=== PATIENT | female | born 1950 ===

== ENCOUNTER 2025-06-13 15:02 | Inpatient (IN) | payer MEDICARE ==
[~2025-06-13] VITALS: Ht 175.3 cm; Wt 87.8 kg
[2025-06-13 19:12] VITALS: BP 150/93
--- NOTE | 2025-06-13 19:41 | NUR ---
DIRECT ADMISSION PATIENT ARRIVED TO PCU 01 VIA STRETCHER FROM . SHE IS ALERT AND ORIENTED X4, ABLE TO TRANSFER SELF. DENIES ANY NUMBNESS OR TINGLING. ON ROOM AIR, VITAL SIGNS STABLE. ENDORSES HAVING BACK PAIN. ALCOHOL AND DRUG COUNSELOR KEYUR AT BEDSIDE FOR ASSESSMENT.
[2025-06-13] MEDS ORDERED: Albuterol 2.5 MG/3 ML VIAL INH PRN (19:45)
[2025-06-13] MEDS ORDERED: HYDROcodone 5-APAP 325 TAB PO PRN (19:45)
[2025-06-13 20:24] LABS: Hematocrit 26.4 % (33.0-51.0); Hemoglobin 8.8 g/dL (11.5-16.0); Mean Corpuscular HGB Conc 33.3 g/dL (31.5-36.5); Mean Corpuscular Volume 95 fL (80-100); NRBC ABSOLUTE 0.00 K/mm3 (0.00-0.02); NRBC Auto 0.0 /100 WBC (0.0-0.2); Platelet Count 212 K/mm3 (150-400); RDW Coefficient Variation 13.8 % (11.7-14.2); RDW Standard Deviation 47.8 fL (35.1-46.3)
[2025-06-13 20:45] LABS: Alanine Aminotransfer (ALT/SGP 15.0 U/L (12-78); Albumin, Blood 3.4 g/dL (3.4-5.0); Albumin/Globulin Ratio 0.6 (0.8-1.8); Anion Gap 11.0 mmol/L (3-11); Aspartate Aminotrans (AST/SGOT 22.0 U/L (12-37); Bilirubin, Total 0.3 mg/dL (0.1-1.0); Blood Urea Nitrogen 18.0 mg/dL (8-24); CO2, Blood 29.0 mmol/L (21-32); Calcium, Blood 9.5 mg/dL (8.5-10.1); Chloride, Blood 96.0 mmol/L (98-108); Creatinine, Blood 2.72 mg/dL (0.40-1.00); Globulin, Blood 5.8 g/dL (2.2-4.0); Glucose, Blood 100.0 mg/dL (70-99); Potassium, Blood 3.5 mmol/L (3.5-5.5); Sodium, Blood 132.0 mmol/L (136-145); Total Protein, Blood 9.2 g/dL (6.4-8.2)
[2025-06-13] MEDS ORDERED: Heparin Sodium,Porcine 5,000 UNIT/0.5 ML SDV SC SCH (21:00)
[2025-06-13] MEDS ORDERED: ALBU90OI INH (21:48)
[2025-06-13] MEDS ORDERED: ACET500 PO (21:48)
[2025-06-13] MEDS ORDERED: ELIQUIS5 M2 PO (21:49)
[2025-06-13] MEDS ORDERED: Alphagan P5 ML BOTHEYES (21:50)
[2025-06-13] MEDS ORDERED: BUTALB-ASPIRIN1 EAC1 PO (21:51)
[2025-06-13] MEDS ORDERED: Calcium Acetat667 MG PO (22:00)
[2025-06-13] MEDS ORDERED: THERA-D2000 UNIT PO (22:01)
[2025-06-13] MEDS ORDERED: HYDR1TAB94 PO (22:02)
[2025-06-13] MEDS ORDERED: DORZOPSO BOTHEYES (22:02)
[2025-06-13] MEDS ORDERED: LATA.005SO BOTHEYES (22:03)
[2025-06-13] MEDS ORDERED: HYDSUL200 PO (22:03)
[2025-06-13] MEDS ORDERED: MONT10T PO (22:04)
[2025-06-13] MEDS ORDERED: EUTHYROX88 MCG PO (22:04)
[2025-06-13] MEDS ORDERED: ONDA4 PO (22:04)
[2025-06-13] MEDS ORDERED: PREG75 PO (22:05)
[2025-06-13] MEDS ORDERED: ROSUVASTATIN CAL5 MG PO (22:06)
[2025-06-13] MEDS ORDERED: SODBIC650 PO (22:06)
[2025-06-13] MEDS ORDERED: SYMBICORT 80-10.2 GM INH (22:09)
[2025-06-13] MEDS ORDERED: VENL150ER PO (22:10)
[2025-06-13] MEDS ORDERED: ALEN70 PO (22:11)
[2025-06-13 23:19] VITALS: BP 147/84
[2025-06-14 04:25] VITALS: BP 139/94
--- NOTE | 2025-06-14 05:24 | NUR ---
SHIFT SUMMARY PATIENT ALERT AND ORIENTED X4. MEDICATED PER EMAR FOR PAIN. HAD NO COMPLAINTS OF SHORTNESS OF BREATH. ON ROOM AIR WHILE AWAKE, CPAP FOR SLEEP. VITAL SIGNS STABLE. NO ACUTE ISSUES NOTED OVERNIGHT. WILL CONTINUE TO MONITOR. CALL LIGHT WITHIN REACH.
--- NOTE | 2025-06-14 08:40 | NUR ---
Pt is sleeping at time of bedside shift report. Respirations even, unlabored. NPO for permacath placement today. NSR 74 bpm by telemetry noted, 95% spo2 on room air.
--- NOTE | 2025-06-14 10:49 | NUR ---
Pt reported this morning that she had some dizzyness last night. She felt fine this morning while lying down, but her blood pressure lying was 95/71 (80). Upon standing she felt a little bit dizzy while holding on to the walker, and her b/p was 104/69 (79). Her dizzyness resolved. Otherwise she has no complaints and feels ok.
--- NOTE | 2025-06-14 11:02 | NUR ---
Plan for permacath placement today, between 2 and 7 pm per COR[facility] Brito in [facility].
[2025-06-14 12:13] VITALS: BP 109/77
[2025-06-14] MEDS ORDERED: Heparin Sodium 1000 Units/ML 10ML MDV ONE (15:04)
[2025-06-14] MEDS ORDERED: NS 250 ML IV ONE (15:04)
[2025-06-14] MEDS ORDERED: Aspirin/Caffeine/Butalbital 1 CAP PO PRN (15:05)
[2025-06-14] MEDS ORDERED: FentaNYL Citrate 50 MCG/ML 2 ML Injection ONE (15:30)
[2025-06-14] MEDS ORDERED: Midazolam HCl 1MG / ML 2ML Vial ONE (15:30)
[2025-06-14] MEDS ORDERED: NS 500 ML IV ONE (15:31)
[2025-06-14] MEDS ORDERED: Heparin Sodium 10,000 Units/ML 1ML MDV ONE (16:00)
[2025-06-14] MEDS ORDERED: Ondansetron HCl 2 MG / ML 2ML Vial ONE (16:29)
[2025-06-14 16:38] VITALS: BP 143/71
[2025-06-14] MEDS ORDERED: Calcium Acetate 667 MG Gel Cap PO SCH (17:00)
--- NOTE | 2025-06-14 17:01 | NUR ---
Pt returned in wheelchair with CORETTA Velásquez accompanying her from [facility], after permacath placement on the right chest wall. she is awake, alert, oriented and pleasantly conversant. Has no complaints of pain or discomfort. Her daughter Nakia is also at bedside. Pt vital signs are stable. The permacath on the right chest wall is covered in Clean dry and intact CHG dressing. Cloth dot also on the right chest wall is CDI. Cloth dot on the left neck where IJ was removed is also CDI. Pt is sitting up in bed, eating some soup and drinking ice water. She has no complaints.
[2025-06-14] MEDS ORDERED: Formoterol/Mometasone MDI 5/100 mcg 13 GM INH SCH (18:20)
[2025-06-14 19:24] VITALS: BP 135/61
[2025-06-14] MEDS ORDERED: Latanoprost 0.005% Opth Soln 2.5 ML BOTHEYES SCH (21:00)
[2025-06-14] MEDS ORDERED: Brimonidine Tartrate 0.2% Opth 5 ml BOTHEYES SCH (21:00)
[2025-06-14 23:45] VITALS: BP 137/80
[2025-06-15] VITALS (19 sets, daily range): BP systolic 108–172; BP diastolic 62–88
[2025-06-15 04:09] LABS: BASOPHILS ABSOLUTE AUTO 0.07 K/mm3 (0.00-0.23); BASOPHILS PERCENT AUTO 1 % (0-2); EOSINOPHILS ABSOLUTE AUTO 0.57 K/mm3 (0.00-0.68); EOSINOPHILS PERCENT AUTO 9 % (0-6); Hematocrit 25.6 % (33.0-51.0); Hemoglobin 8.3 g/dL (11.5-16.0); IMMATURE GRAN ABSOLUTE AUTO 0.05 K/mm3 (0.00-0.10); IMMATURE GRAN PERCENT AUTO 1 % (0-1); LYMPHOCYTES ABSOLUTE AUTO 1.50 K/mm3 (0.84-5.20); LYMPHOCYTES PERCENT AUTO 23 % (21-46); MONOCYTES ABSOLUTE AUTO 0.78 K/mm3 (0.16-1.47); MONOCYTES PERCENT AUTO 12 % (4-13); Mean Corpuscular HGB Conc 32.4 g/dL (31.5-36.5); Mean Corpuscular Volume 97 fL (80-100); NEUTROPHILS ABSOLUTE AUTO 3.52 K/mm3 (1.96-9.15); NEUTROPHILS PERCENT AUTO 54 % (41-73); NRBC ABSOLUTE 0.00 K/mm3 (0.00-0.02); NRBC Auto 0.0 /100 WBC (0.0-0.2); Platelet Count 207 K/mm3 (150-400); RDW Coefficient Variation 13.9 % (11.7-14.2); RDW Standard Deviation 49.3 fL (35.1-46.3)
[2025-06-15 04:25] LABS: Albumin, Blood 3.3 g/dL (3.4-5.0); Anion Gap 13 mmol/L (3-11); Blood Urea Nitrogen 41 mg/dL (8-24); CO2, Blood 28 mmol/L (21-32); Calcium, Blood 9.5 mg/dL (8.5-10.1); Chloride, Blood 96 mmol/L (98-108); Creatinine, Blood 5.90 mg/dL (0.40-1.00); Glucose, Blood 121 mg/dL (70-99); Magnesium, Blood 2.2 mg/dL (1.6-2.4); Phosphorus, Blood 4.8 mg/dL (2.5-4.9); Potassium, Blood 3.5 mmol/L (3.5-5.5); Sodium, Blood 133 mmol/L (136-145)
--- NOTE | 2025-06-15 05:19 | NUR ---
SHIFT SUMMARY PATIENT ALERT AND ORIENTED X4. MEDICATED PER EMAR FOR PAIN. DENIES CHEST PAIN OR SHORTNESS OF BREATH. ON ROOM AIR WHILE AWAKE AND CPAP FOR SLEEP. VITAL SIGNS STABLE. NO ACUTE ISSUES NOTED OVERNIGHT. WILL CONTINUE TO MONITOR. CALL LIGHT WITHIN REACH.
--- NOTE | 2025-06-15 08:42 | NUR ---
PT DOWN TO DIALYSIS AT 0830 VIA HOSPITAL BED AND ON RA. PT PERSONAL PHONE AND WATER BOTTLE WITH PT PER REQUEST.
[2025-06-15] MEDS ORDERED: Cholecalciferol 1000 Unit Tablet (=25MCG) PO SCH (09:00)
[2025-06-15] MEDS ORDERED: PANT20 PO (10:51)
--- NOTE | 2025-06-15 13:19 | NUR ---
DISCHARGE UPDATE DISCHARGE PACKET GONE OVER WIT PT AND PT DAUGHTER AT 1250. PT DISCHARGED AT 1310 VIA WHEEL CHAIR AND ON RA. PT ABLE TO DRESS HER SELF AND TRANSFER TO AND FROM WHEELCHAIR ON HER OWN, TOLERATED WELL. PT PERSONAL BELONGINGS WITH DAUGHTER AT TIME OF DISCHARGE. DISCHARGE PACKET WITH PT AT TIME OF DISCHARGE.
[2025-06-17 05:00] LABS: HBV CORE ANTIBODIES,TOTAL Negative (Negative); HEPATITIS B SURFACE ANTIBODY <3.10 IU/L
== END 2025-06-15 13:00 | disposition home or self-care (01) | DRG 682 ==
LOC: PCU 15:02
PROVIDERS: Family Medicine; Internal Medicine Nephrology; Nurse Practitioner Acute Care; ADMIT Internal Medicine
PROC: 5A1D70Z Performance of Urinary Filtration, Intermittent, Less than 6 Hours Per Day (ICD-10-PCS; principal; 2025-06-13)
DX: I12.0 Hypertensive chronic kidney disease with stage 5 chronic kidney disease or end stage renal disease (principal); N18.6 End stage renal disease; D68.61 Antiphospholipid syndrome; N17.9 Acute kidney failure, unspecified; Z66 Do not resuscitate; E03.9 Hypothyroidism, unspecified; G47.33 Obstructive sleep apnea (adult) (pediatric); I25.10 Atherosclerotic heart disease of native coronary artery without angina pectoris; J44.89 Other specified chronic obstructive pulmonary disease; K21.9 Gastro-esophageal reflux disease without esophagitis; E78.5 Hyperlipidemia, unspecified; F32.A Depression, unspecified; Z79.01 Long term (current) use of anticoagulants; Z99.2 Dependence on renal dialysis; Z86.718 Personal history of other venous thrombosis and embolism
CPT/HCPCS: 36415; 71045; 76937; 80053; 80069; 83735; 85025; 85027; 86704; 87340; 94640; 94660; 94664; 94762; 96372; 99152; A9270; C1750; C1769; C1894; G0378; J1644; J2250; J2405; J3010; J7040; J7050